=== PATIENT | male | born 1995 | race Caucasian/White ===

== ENCOUNTER 2023-05-08 08:38 | Day surgery (SDC) | payer OTHER ==
[~2023-05-08] VITALS: Ht 177.8 cm; Wt 83.0 kg
[2023-05-08] MEDS ORDERED: LR 1,000 ML IV SCH (09:20)
[2023-05-08] MEDS ORDERED: ROCURONIUM BROMIDE 50MG/5ML VIAL As Ordered ONE (09:59)
[2023-05-08] MEDS ORDERED: ACETAMINOPHEN 1000MG 100ML IV BAG As Ordered ONE (09:59)
[2023-05-08] MEDS ORDERED: propofoL 200 MG/20 ML VIAL As Ordered ONE (09:59)
[2023-05-08] MEDS ORDERED: MIDAZOLAM INJ 2MG/2ML VIAL As Ordered ONE (09:59)
[2023-05-08] MEDS ORDERED: fentaNYL 250 MCG/5 ML INJECTION As Ordered ONE (09:59)
[2023-05-08] MEDS ORDERED: dexmedeTOMIDine (4MCG/ML)200MCG/50ML BTL (PRECEDEX) As Ordered ONE (09:59)
[2023-05-08] MEDS ORDERED: ONDANSETRON 4MG 2ML VIAL As Ordered ONE (09:59)
[2023-05-08] MEDS ORDERED: LIDOCAINE 2% 100MG/5ML SDV (FOR ANES.) As Ordered ONE (09:59)
[2023-05-08] MEDS ORDERED: SUGAMMADEX SODIUM 500 MG/5 ML VIAL (BRIDION) As Ordered ONE (09:59)
[2023-05-08] MEDS ORDERED: oxyCODONE 5MG TAB PO PRN (10:20)
[2023-05-08] MEDS ORDERED: ONDANSETRON 4MG 2ML VIAL IV PRN (10:20)
[2023-05-08] MEDS ORDERED: fentaNYL 100 MCG/2 ML INJECTION IV PRN (10:20)
[2023-05-08 11:29] VITALS: BP 119/76; TEMP 97; O2SAT 100
== END 2023-05-08 11:51 | disposition home or self-care (01) ==
LOC: M SDC 08:38
PROVIDERS: ATTEND Otolaryngology
DX: J35.3 Hypertrophy of tonsils with hypertrophy of adenoids (principal)
CPT/HCPCS: 42821; 88302; J0131; J0665; J1100; J2250; J2405; J3010

== ENCOUNTER → 2024-02-12 | Outpatient (CLI) | payer OTHER | LOC: M RAD 09:14 | PROVIDERS: ATTEND Specialist | DX: N44.1 Cyst of tunica albuginea testis (principal); N50.3 Cyst of epididymis; I86.1 Scrotal varices ==